=== PATIENT | male | born 1995 | race Caucasian/White ===

== ENCOUNTER 2019-04-07 13:03 | Emergency (ER) | payer SELFPAY ==
[~2019-04-07] VITALS: Ht 180.3 cm; Wt 67.0 kg
[2019-04-07] MEDS ORDERED: ACETAMINOPHEN WITH CODEINE 300/30MG TABLET PO ONE (15:30)
[2019-04-07 15:52] VITALS: BP 109/76
== END 2019-04-07 15:58 | disposition home or self-care (01) ==
LOC: EDBD 13:03 → ER 13:50
DX: S93.401A Sprain of unspecified ligament of right ankle, initial encounter (principal); F17.200 Nicotine dependence, unspecified, uncomplicated; X58.XXXA Exposure to other specified factors, initial encounter; Y93.9 Activity, unspecified; Y92.9 Unspecified place or not applicable
CPT/HCPCS: 93971; 99284